=== PATIENT | male | born 1990 | race Caucasian/White ===

== ENCOUNTER 2024-05-06 10:23 | Outpatient (CLI) | payer BC, SELFPAY ==
[2024-05-09 07:39] LABS: Varicella-Zoster Virus Source Vesicle; Varicella-Zoster Virus by PCR Detected
== END 2024-05-06 10:24 | disposition home or self-care (01) ==
LOC: NFLDUCREF 10:23
PROVIDERS: Visit Provider Physician Assistant
DX: R23.8 Other skin changes (principal)
CPT/HCPCS: 86787